=== PATIENT | female | born 1955 | race Two or more races ===

== ENCOUNTER → 2017-12-08 | Outpatient (REF) | payer OTHER ==
[2017-12-08 16:21] LABS: BASO % 0.5 % (0.0-1.0); EOS # 0.1 10^3/uL (0.0-0.50); EOS % 1.4 % (0.0-3.0); HEMATOCRIT 37.3 % (36.0-47.0); HEMOGLOBIN 12.3 g/dl (12.0-16.0); IMMATURE GRANULOCYTE % 0.2 % (0-0); LYMPH % 45.4 % (24.0-44.0); MEAN CORPUSCULAR HEMOGLOBIN 27.8 pg (27.0-33.0); MEAN CORPUSCULAR VOLUME 84.4 fl (80.0-96.0); MONO # 0.6 10^3/uL (0.0-0.8); MONO % 12.8 % (0.0-5.0); NEUTROPHILS # 1.7 10^3/uL (1.8-7.7); NEUTROPHILS % 39.7 % (36.0-66.0); PLATELET COUNT, AUTOMATED 236 10^3/uL (150-450); RED BLOOD COUNT 4.42 10^6/uL (4.00-5.40); RED CELL DISTRIBUTION WIDTH 13.4 % (11.5-14.5); WHITE BLOOD COUNT 4.4 10^3/uL (4.0-10.0)
[2017-12-08 16:38] LABS: ALBUMIN 3.6 GM/DL (3.2-5.2); ALBUMIN/GLOBULIN RATIO 0.88 (1.00-1.93); ALKALINE PHOSPHATASE 84 U/L (45-117); ALT/SGPT 19 U/L (12-78); ANION GAP 6 MEQ/L (8-16); AST/SGOT 19 U/L (7-37); BILIRUBIN,TOTAL 0.3 MG/DL (0.2-1.0); BLOOD UREA NITROGEN 15 MG/DL (7-18); CARBON DIOXIDE LEVEL 32 MEQ/L (21-32); CHLORIDE LEVEL 102 MEQ/L (98-107); CHOLESTEROL LEVEL 219 MG/DL (<200); CREATININE FOR GFR 0.83 MG/DL (0.55-1.02); GLOMERULAR FILTRATION RATE > 60.0 (>45); GLUCOSE, FASTING 129 MG/DL (80-110); HDL CHOLESTEROL 50 MG/DL (>40); LDL CHOLESTEROL 148.6 MG/DL (<100); NON-HDL-C 169 MG/DL; POTASSIUM SERUM 4.2 MEQ/L (3.5-5.1); SODIUM LEVEL 140 MEQ/L (136-145); TOTAL PROTEIN 7.7 GM/DL (6.4-8.2); TRIGLYCERIDES LEVEL 102 MG/DL (<150)
[2017-12-08 17:02] LABS: ESTIMATED AVERAGE GLUCOSE 171 MG/DL (60-110); HEMOGLOBIN A1c 7.6 %
== END ==
LOC: M LAB REF 15:36
DX: Z86.2 Personal history of diseases of the blood and blood-forming organs and certain disorders involving the immune mechanism (principal)

== ENCOUNTER → 2018-01-15 | Outpatient (CLI) | payer OTHER | LOC: M RAD 11:23 | DX: Z12.39 Encounter for other screening for malignant neoplasm of breast (principal); Z78.0 Asymptomatic menopausal state | CPT/HCPCS: 77067 ==

== ENCOUNTER → 2018-01-22 | Outpatient (CLI) | payer MEDICAID, SELFPAY, OTHER | LOC: M CARPUL 09:24 | DX: I05.0 Rheumatic mitral stenosis (principal) | CPT/HCPCS: 93306 ==

== ENCOUNTER → 2018-03-19 | Outpatient (REF) | payer OTHER, MEDICAID ==
[2018-03-19 13:24] LABS: MALB URINE SIEMENS 8.9 MG/L; MAU/CREAT RATIO 5.2 MCG/MG (0.0-30.0)
[2018-03-19 13:34] LABS: ANION GAP 5 MEQ/L (8-16); BLOOD UREA NITROGEN 14 MG/DL (7-18); CALCIUM LEVEL 9.5 MG/DL (8.8-10.2); CARBON DIOXIDE LEVEL 32 MEQ/L (21-32); CHLORIDE LEVEL 103 MEQ/L (98-107); CREATININE FOR GFR 0.85 MG/DL (0.55-1.30); GLOMERULAR FILTRATION RATE > 60.0 (>45); GLUCOSE, FASTING 124 MG/DL (70-100); POTASSIUM SERUM 4.4 MEQ/L (3.5-5.1); SODIUM LEVEL 140 MEQ/L (136-145)
[2018-03-19 13:36] LABS: BASO % 0.6 % (0.0-1.0); EOS # 0.1 10^3/uL (0.0-0.50); EOS % 1.1 % (0.0-3.0); HEMATOCRIT 36.5 % (36.0-47.0); HEMOGLOBIN 12.1 g/dl (12.0-15.5); IMMATURE GRANULOCYTE % 0.2 % (0-3.0); LYMPH # 1.8 10^3/uL (1.5-4.5); LYMPH % 34.3 % (24.0-44.0); MEAN CORPUSCULAR HEMOGLOBIN 28.1 pg (27.0-33.0); MEAN CORPUSCULAR HGB CONC 33.2 g/dl (32.0-36.5); MEAN CORPUSCULAR VOLUME 84.9 fl (80.0-96.0); MONO # 0.7 10^3/uL (0.0-0.8); MONO % 13.2 % (0.0-5.0); NEUTROPHILS # 2.7 10^3/uL (1.8-7.7); NEUTROPHILS % 50.6 % (36.0-66.0); PLATELET COUNT, AUTOMATED 271 10^3/uL (150-450); RED CELL DISTRIBUTION WIDTH 13.4 % (11.5-14.5); WHITE BLOOD COUNT 5.4 10^3/uL (4.0-10.0)
[2018-03-24 14:18] LABS: HPV HYBRID CAPTURE II Negative (Negative)
== END ==
LOC: M LAB REF 12:19
DX: Z12.4 Encounter for screening for malignant neoplasm of cervix (principal)
CPT/HCPCS: 82043

== ENCOUNTER → 2018-05-21 | Outpatient (REF) | payer OTHER ==
[2018-05-21 17:10] LABS: ALBUMIN 3.2 GM/DL (3.2-5.2); ALKALINE PHOSPHATASE 96 U/L (45-117); ALT/SGPT 28 U/L (12-78); ANION GAP 8 MEQ/L (8-16); AST/SGOT 20 U/L (7-37); BILIRUBIN,TOTAL 0.2 MG/DL (0.2-1.0); BLOOD UREA NITROGEN 18 MG/DL (7-18); CALCIUM LEVEL 8.7 MG/DL (8.8-10.2); CARBON DIOXIDE LEVEL 31 MEQ/L (21-32); CHLORIDE LEVEL 103 MEQ/L (98-107); CREATININE FOR GFR 0.88 MG/DL (0.55-1.30); GLOMERULAR FILTRATION RATE > 60.0 (>45); GLUCOSE, FASTING 134 MG/DL (70-100); POTASSIUM SERUM 4.7 MEQ/L (3.5-5.1); SODIUM LEVEL 142 MEQ/L (136-145); TOTAL PROTEIN 7.8 GM/DL (6.4-8.2)
[2018-05-21 18:24] LABS: BASO % 0.8 % (0.0-1.0); EOS # 0.1 10^3/uL (0.0-0.50); EOS % 1.7 % (0.0-3.0); HEMATOCRIT 36.7 % (36.0-47.0); IMMATURE GRANULOCYTE % 0.2 % (0-3.0); LYMPH # 1.5 10^3/uL (1.5-4.5); MEAN CORPUSCULAR HEMOGLOBIN 27.8 pg (27.0-33.0); MEAN CORPUSCULAR HGB CONC 32.7 g/dl (32.0-36.5); MEAN CORPUSCULAR VOLUME 85.2 fl (80.0-96.0); MONO # 0.5 10^3/uL (0.0-0.8); MONO % 9.9 % (0.0-5.0); NEUTROPHILS # 3.1 10^3/uL (1.8-7.7); NEUTROPHILS % 58.4 % (36.0-66.0); PLATELET COUNT, AUTOMATED 259 10^3/uL (150-450); RED BLOOD COUNT 4.31 10^6/uL (4.00-5.40); RED CELL DISTRIBUTION WIDTH 13.2 % (11.5-14.5); WHITE BLOOD COUNT 5.3 10^3/uL (4.0-10.0)
[2018-05-21 18:30] LABS: URINE TOTAL PROTEIN 6.9 MG/DL (0-12)
[2018-05-21 18:35] LABS: APPEARANCE, URINE CLEAR (CLEAR); BACTERIA, URINE AUTO 3+ (NEGATIVE); BILIRUBIN, URINE AUTO NEGATIVE (NEGATIVE); BLOOD, URINE BLOOD NEGATIVE (NEGATIVE); COLOR, URINE YELLOW (YELLOW); GLUCOSE, URINE (UA) AUTO NEGATIVE (NEGATIVE); KETONE, URINE AUTO NEGATIVE (NEGATIVE); LEUKOCYTE ESTERASE, URINE AUTO NEGATIVE (NEGATIVE); MUCUS, URINE SMALL (NEGATIVE); NITRITE, URINE AUTO NEGATIVE (NEGATIVE); PROTEIN, URINE AUTO NEGATIVE (NEGATIVE); RBC, URINE AUTO 1 /HPF (0-3); SPECIFIC GRAVITY URINE AUTO 1.017 (1.002-1.035); SQUAMOUS EPITHELIAL CELL UR AU 0 /HPF (0-6); UROBILINOGEN, URINE AUTO 0.2 mg/dL (0.0-2.0); WBC, URINE AUTO 10 /HPF (0-3)
[2018-05-24 11:23] LABS: ALBUMIN 3.74 GM/DL (3.29-5.55); ALBUMIN % 47.9 % (55.8-66.1); ALPHA-1-GLOBULIN % 4.3 % (2.9-4.9); ALPHA-1-GLOBULINS 0.34 GM/DL (0.17-0.41); ALPHA-2-GLOBULINS % 10.3 % (7.1-11.8); BETA-1-GLOBULINS 0.51 GM/DL (0.28-0.60); BETA-1-GLOBULINS % 6.5 % (4.7-7.2); BETA-2-GLOBULINS 0.57 GM/DL (0.19-0.55); BETA-2-GLOBULINS % 7.3 % (3.2-6.5); GAMMA GLOBULIN % 23.7 % (11.1-18.8); GAMMA GLOBULINS 1.85 GM/DL (0.65-1.58)
[2018-05-27 12:59] LABS: UPEP INTERPRETATION NO M-SPIKE NOTED; URINE VOLUME RANDOM ML
== END ==
LOC: M LAB REF 16:36
DX: R63.4 Abnormal weight loss (principal)
CPT/HCPCS: 84165

== ENCOUNTER → 2018-05-21 | Outpatient (CLI) | payer OTHER | LOC: M LAB 12:11 | DX: M54.5 Low back pain (principal); R93.421 Abnormal radiologic findings on diagnostic imaging of right kidney | CPT/HCPCS: 72080 ==

== ENCOUNTER → 2018-08-13 | Outpatient (REF) | payer OTHER ==
[2018-08-13 13:37] LABS: BASO % 0.6 % (0.0-1.0); EOS # 0.1 10^3/uL (0.0-0.50); EOS % 2.1 % (0.0-3.0); HEMATOCRIT 35.2 % (36.0-47.0); HEMOGLOBIN 11.6 g/dl (12.0-15.5); IMMATURE GRANULOCYTE % 0.2 % (0-3.0); LYMPH # 1.6 10^3/uL (1.5-4.5); LYMPH % 30.2 % (24.0-44.0); MEAN CORPUSCULAR HEMOGLOBIN 27.4 pg (27.0-33.0); MONO # 0.8 10^3/uL (0.0-0.8); MONO % 14.1 % (0.0-5.0); NEUTROPHILS # 2.8 10^3/uL (1.8-7.7); NEUTROPHILS % 52.8 % (36.0-66.0); PLATELET COUNT, AUTOMATED 247 10^3/uL (150-450); RED BLOOD COUNT 4.24 10^6/uL (4.00-5.40); WHITE BLOOD COUNT 5.3 10^3/uL (4.0-10.0)
[2018-08-13 14:03] LABS: TOTAL PROTEIN 8.4 GM/DL (6.4-8.2)
[2018-08-16 15:26] LABS: ALBUMIN 3.37 GM/DL (3.29-5.55); ALBUMIN % 44.4 % (55.8-66.1); ALPHA-1-GLOBULINS 0.34 GM/DL (0.17-0.41); ALPHA-2-GLOBULINS 0.87 GM/DL (0.42-0.99); ALPHA-2-GLOBULINS % 10.3 % (7.1-11.8); BETA-1-GLOBULINS 0.53 GM/DL (0.28-0.60); BETA-1-GLOBULINS % 6.3 % (4.7-7.2); BETA-2-GLOBULINS 0.62 GM/DL (0.19-0.55); BETA-2-GLOBULINS % 7.4 % (3.2-6.5); GAMMA GLOBULIN % 27.6 % (11.1-18.8); GAMMA GLOBULINS 2.32 GM/DL (0.65-1.58)
== END ==
LOC: M LAB REF 13:22
DX: D89.0 Polyclonal hypergammaglobulinemia (principal)

== ENCOUNTER → 2018-10-02 | Outpatient (REF) | payer OTHER ==
[2018-10-02 09:19] LABS: URINE VOLUME 2900 ML
[2018-10-02 09:53] LABS: TOTAL PROTEIN,RANDOM URINE < 5.0 MG/DL (0.0-12.0); URINE TOTAL PROTEIN < 5.0 MG/DL (0-12)
[2018-10-07 14:34] LABS: UPEP INTERPRETATION NO M-SPIKE NOTED
== END ==
LOC: M LAB REF 09:15
DX: N39.9 Disorder of urinary system, unspecified (principal)

== ENCOUNTER → 2018-10-06 | Outpatient (CLI) | payer OTHER | LOC: M RAD 13:01 | DX: D47.2 Monoclonal gammopathy (principal) | CPT/HCPCS: 77075 ==

== ENCOUNTER → 2018-10-29 | Outpatient (CLI) | payer OTHER | LOC: M RAD 15:27 | DX: R93.0 Abnormal findings on diagnostic imaging of skull and head, not elsewhere classified (principal) | CPT/HCPCS: 70450 ==

== ENCOUNTER 2019-02-16 11:56 | Day surgery (SDC) | payer OTHER ==
[~2019-02-16] VITALS: Ht 157.5 cm; Wt 145.0 kg
[~2019-02-16 11:56] MED LIST: HYDR25TAB PO; LOSA25TA14 PO; METF-808 PO; METF500T13 PO; METO1TAB32 PO; OMEP40CA2 PO; PANT40TA3 PO; PLAV1TAB2 PO; ROSU10TA5 PO
[2019-02-16 12:56] LABS: BASO % 0.3 % (0.0-1.0); EOS % 0.4 % (0.0-3.0); HEMATOCRIT 35.7 % (36.0-47.0); HEMOGLOBIN 11.8 g/dl (12.0-15.5); LYMPH # 1.7 10^3/uL (1.5-4.5); LYMPH % 16.3 % (24.0-44.0); MEAN CORPUSCULAR HGB CONC 33.1 g/dl (32.0-36.5); MEAN CORPUSCULAR VOLUME 84.6 fl (80.0-96.0); MONO # 0.7 10^3/uL (0.0-0.8); MONO % 6.8 % (0.0-5.0); NEUTROPHILS # 7.7 10^3/uL (1.8-7.7); NEUTROPHILS % 75.9 % (36.0-66.0); PLATELET COUNT, AUTOMATED 263 10^3/uL (150-450); RED BLOOD COUNT 4.22 10^6/uL (4.00-5.40); WHITE BLOOD COUNT 10.2 10^3/uL (4.0-10.0)
[2019-02-16] MEDS ORDERED: NS 1,000 ML IV ONE (13:00)
[2019-02-16] MEDS ORDERED: ONDANSETRON 4MG/2ML VIAL (J2405) IV ONE ×2 (13:00→15:00)
[2019-02-16 13:19] LABS: ALBUMIN 3.6 GM/DL (3.2-5.2); BILIRUBIN,DIRECT 0.1 MG/DL (0.0-0.2); BILIRUBIN,TOTAL 0.4 MG/DL (0.2-1.0); CALCIUM LEVEL 9.2 MG/DL (8.8-10.2); CREATININE FOR GFR 1.03 MG/DL (0.55-1.30); GLOMERULAR FILTRATION RATE 57.6 (>45); POTASSIUM SERUM 3.8 MEQ/L (3.5-5.1); TOTAL PROTEIN 8.2 GM/DL (6.4-8.2)
[2019-02-16] MEDS ORDERED: MORPHINE 2 MG/ML 1ML SYRINGE (J2270) IV ONE ×2 (14:00→15:45)
--- NOTE | 2019-02-16 14:58 | REP ---
CT ABDOMEN AND PELVIS WITHOUT IV OR ORAL CONTRAST: HISTORY: Right lower quadrant and right flank pain. CT FINDINGS: Preliminary digital store leader radiograph shows an unremarkable bowel gas pattern. The lung bases are clear. The liver and the spleen are normal in size homogeneous in texture. No adrenal lesion is seen. Pancreas is unremarkable. No abnormalities noted in the gallbladder. There is moderate right sided hydronephrosis and hydroureter. Moderately dilated right ureter is traced into the pelvis where there is a 6 mm obstructing distal ureteral calculus just above the ureterovesical junction on the right side. There are scattered areas of vascular calcification. No intrarenal calculi are seen on either side. No left-sided urinary tract calculus is observed. The uterus is retroverted and tipped to the left but unremarkable. No adnexal abnormality is seen. Normal appendix is noted. No large or small bowel abnormality is seen. IMPRESSION: Moderate right-sided hydronephrosis and hydroureter due to a 6 mm obstructing distal ureteral calculus located 2-3 cm above the right ureterovesical junction. Electronically Signed by Raphael Zapien MD 02/16/2019 05:20 P
[2019-02-16] MEDS ORDERED: PARO20TA3 PO (16:17)
[2019-02-16] MEDS ORDERED: PROPOFOL 200 MG/20 ML VIAL As Ordered ONE ×2 (16:45→16:50)
[2019-02-16] MEDS ORDERED: ROCURONIUM BROMIDE 50 MG/5 ML VIAL As Ordered ONE (16:46)
[2019-02-16] MEDS ORDERED: LIDOCAINE 2% INJ 100 MG/5 ML SDV (FOR ANES.) As Ordered ONE (16:46)
[2019-02-16] MEDS ORDERED: ONDANSETRON 4MG/2ML VIAL (J2405) As Ordered ONE (16:50)
[2019-02-16] MEDS ORDERED: METOCLOPRAMIDE INJ 10MG/2ML VIAL (J2765) As Ordered ONE (16:50)
[2019-02-16] MEDS ORDERED: fentaNYL 100 MCG/2 ML INJECTION (J3010) As Ordered ONE (16:51)
[2019-02-16] MEDS ORDERED: MIDAZOLAM INJ 2 MG/2 ML VIAL (J2250) As Ordered ONE (16:51)
[2019-02-16] MEDS ORDERED: CONRAY-60 60% 50ML VIAL (Q9961) As Ordered ONE (17:24)
--- NOTE | 2019-02-16 18:47 | SMCUROLCON ---
Urology Consultation General Date of Consultation 02/16/19 Reason For Consultation This patient is seen for R Obstructing Stone. History of Present Illness This is a 63 y/o F w/ a PMH significant for CAD (on plavix) and HTN, who presented to the ER this morning acute onset right flank pain. A CT A/P was do ne in the ER that was notable for a 6mm distal right ureteral stone w/ moderate right hydroureteronephrosis above the level of the stone. The patient denies dysuria or fevers. Despite multiple doses of morphine in the ER she continues to have 8/10 pain. Her UA only had 1 WBC/hpf. Her WBC 10.2 and the Cr is 1. Past Medical History Medical History see HPI Medications Current Medications Current Medications Home Med (Med Rec Complete!) ASDIRECTED XX ; Start 02/16/19 at 16:30; Stop 02/16/19 at 16:30; Status DC Allergies Allergies: Coded Allergies: Aspirin (Verified Allergy, Severe, swelling, ANGIOEDEMA, 02/16/19) Amoxicillin (Verified Allergy, Intermediate, hives, 02/16/19) Penicillins (Verified Allergy, Intermediate, hives, 02/16/19) Review of Systems Constitutional: Denies: Fever, Chills Skin: Denies: Rash, Lesions, Breakdown, Nail Changes Pulmonary: Denies: Dyspnea, Cough Cardiovascular: Denies Chest Pain, Denies Palpitations Gastrointestinal: Reports: Nausea, Vomiting, Abdominal Pain Musculoskeletal: Reports: Back Pain (right flank pain) Physical Examination General Exam: Alert, Cooperative, No Acute Distress Chest Exam: Clear to auscultation, Normal air movement Heart Exam: Rate Normal, Regular Rhythm Neuro Exam: Normal Speech Psych Exam: Mental status NL, Mood NL Vital Signs/I&O Vital Signs Date Time Temp Pulse Resp B/P (MAP) Pulse Ox O2 Delivery O2 Flow Rate FiO2 02/16/19 17:46 98.1 71 17 138/65 (89) 98 Room Air Laboratory Data 24H Labs Laboratory Tests 2 02/16/19 12:24: Immature Granulocyte % (Auto) 0.3, White Blood Count 10.2H, Red Blood Count 4.2 2, Hemoglobin 11.8L, Hematocrit 35.7L, Mean Corpuscular Volume 84.6, Mean Corpuscular Hemoglobin 28.0, Mean Corpuscular Hemoglobin Concent 33.1, Red Cell Distribution Width 14.5, Platelet Count 263, Neutrophils (%) (Auto) 75.9H, Lymphocytes (%) (Auto) 16.3L, Monocytes (%) (Auto) 6.8H, Eosinophils (%) (Auto) 0.4, Basophils (%) (Auto) 0.3, Neutrophils # (Auto) 7.7, Lymphocytes # (Auto) 1.7, Monocytes # (Auto) 0.7, Eosinophils # (Auto) 0.0, Basophils # (Auto) 0.0, Nucleated Red Blood Cells % (auto) 0.0, Urine Color YELLOW, Urine Appearance CLEAR, Urine pH 7.0, Urine Specific [place] 1.010, Urine Protein NEGATIVE, Urine Glucose (UA) NEGATIVE, Urine Ketones NEGATIVE, Urine Blood 2+H, Urine Nitrite NEGATIVE, Urine Bilirubin NEGATIVE, Urine Urobilinogen 0.2, Urine Leukocyte Esterase NEGATIVE, Urine WBC (Auto) 1, Urine RBC (Auto) 12H, Urine Hyaline Casts (Auto) 0, Urine Bacteria (Auto) 1+H, Urine Squamous Epithelial Cells 0, Urine Mucus (Auto) SMALL, Urine Sperm (Auto) , Anion Gap 9, Glomerular Filtration Rate 57.6, Calcium Level 9.2, Aspartate Amino Transf (AST/SGOT) 17, Alanine Aminotransferase (ALT/SGPT) 16, Alkaline Phosphatase 83, Total Bilirubin 0.4, Direct Bilirubin 0.1, Total Protein 8.2, Albumin 3.6, Albumin/Globulin Ratio 0.78L, Lipase 202 CBC/BMP Laboratory Tests 02/16/19 12:24 Red Blood Count 4.22, Mean Corpuscular Volume 84.6, Mean Corpuscular Hemoglobin 28.0, Mean Corpuscular Hemoglobin Concent 33.1, Red Cell Distribution Width 14.5, Neutrophils (%) (Auto) 75.9 H, Lymphocytes (%) (Auto) 16.3 L, Monocytes (%) (Auto) 6.8 H, Eosinophils (%) (Auto) 0.4, Basophils (%) (Auto) 0.3, Neutrophils # (Auto) 7.7, Lymphocytes # (Auto) 1.7, Monocytes # (Auto) 0.7, Eosinophils # (Auto) 0.0, Basophils # (Auto) 0.0 Assessment This is s 63 y/o F w/ intractable pain from a 6mm obstructing distal right ureteral stone. Since she last took plavix yesterday I did not recommend going in to remove the stone today. I recommended cystoscopy w/ right ureteral stent placement and explained that we will need to bring her back later on for to remove the stone. She noted understanding. After a discussion of the risks and benefits of the procedure, informed consent was signed. Of note, the patient's daughter translated during this encounter. Plan - informed consent signed for cystoscopy, right ureteral stent placement - [facility] [place] [facility] HARRIET Wren MD Feb 16, 2019 18:47
[2019-02-16] MEDS ORDERED: LIDOCAINE 2% 5ML JELLY UROJET As Ordered ONE (18:55)
[2019-02-16] MEDS ORDERED: LevoFLOXacin(LEVAQUIN)500 MG/100 ML BAG (J1956) As Ordered ONE (18:55)
[2019-02-16] MEDS ORDERED: LevoFLOXacin IV 500 MG in APPROPRIATE DILUENT 1 EA IV ONE (19:00)
[2019-02-16] MEDS ORDERED: fentaNYL 100 MCG/2 ML INJECTION (J3010) IV PRN (20:00)
[2019-02-16] MEDS: NORCO, ANEXSIA 5/325MG TABLET (HYDROcodone/ACETAMINOPHEN) PO PRN ×2 (20:00→20:35)
[2019-02-16] MEDS ORDERED: ONDANSETRON 4MG/2ML VIAL (J2405) IV PRN (20:00)
[2019-02-16] MEDS ORDERED: LR 1,000 ML IV SCH (20:00)
[2019-02-16] MEDS ORDERED: PERCOCET 5MG/325MG TAB PO PRN (20:00)
--- NOTE | 2019-02-16 20:43 | REP ---
TWO SPOT VIEWS OF THE ABDOMEN AND PELVIS USING A PORTABLE C-ARM DEVICE IN MY ABSENTIA DURING INTRAVENOUS PYELOGRAPHY ON THE RIGHT WITH DEPLOYMENT OF DOUBLE J PIGTAIL CATHETER: There is a double J pigtail catheter seen on the right, the proximal portion of which is in the right renal pelvis and the left is in the urinary bladder. 6 seconds of fluoroscopy time was provided Dr. Pradeep Bey for the procedure. Electronically Signed by Jatin Gordon DO 02/17/2019 01:57 P
[2019-02-16 20:45] VITALS: BP 118/58
--- NOTE | 2019-02-16 21:27 | ECGEPIP ---
Stationary ECG Study [facility] - ED Test Date: 2019-02-16 Pat Name: BUD DESIR Department: Room: - Gender: F Mapping Technician: YANCI : 1955 Requested By: LOCO Hines PA-C Order Number: [id number] Reading MD: Charity La Measurements Intervals [place] Rate: 66 P: 56 NV: 145 QRS: 77 QRSD: 72 T: 53 QT: 410 QTc: 431 Interpretive Statements SINUS RHYTHM POSSIBLE LEFT ATRIAL ENLARGEMENT SIMILAR 03/11/18 Electronically Signed On 02-16-2019 21:27:38 EDT by Charity La
--- NOTE | 2019-02-17 09:29 | RO ---
DATE OF PROCEDURE: 02/16/2019 PREPROCEDURE DIAGNOSIS: Obstructing right ureteral stone. POSTPROCEDURE DIAGNOSIS: Obstructing right ureteral stone. PROCEDURE: Cystoscopy, right retrograde pyelogram with intraoperative interpretation of images, right ureteral stent placement. SURGEON: Dr. Pradeep Bey PLASTICS SEASONER OPERATOR: None. ANESTHESIA: MAC. OPERATIVE INDICATIONS: This is a 63-year-old female who was found in the emergency room to have an obstructing 6 mm distal right ureteral stone and was having intractable pain from this. It was recommended she be brought to the operating room today for stent placement. I elected not to remove the stone as patient is on Plavix. DESCRIPTION OF PROCEDURE: The patient was brought to the operating room. Prophylactic antibiotics were infused. She was placed in dorsal lithotomy position, prepped and draped in the usual sterile fashion. At this point, a rigid cystoscope was inserted into the urethral meatus and advanced into the bladder. A 5-Lao open ended ureteral catheter was advanced up the right collecting system up into the renal pelvis, even though there was a hydronephrotic drip. A retrograde pyelogram was performed noted for moderate right hydronephrosis. No extravasation. At this point, a wire was advanced up to the right collecting system and then the open ended ureteral catheter was removed. The wire was then utilized to advance a 7-Lao x 22-32 cm JJ ureteral stent up into the right collecting system. The wire was then removed and there were adequate curls to the stent in the right renal pelvis and in the bladder. Bladder was emptied of all fluids and this marked the conclusion of the procedure. The patient was then taken out of dorsal lithotomy position, awakened from anesthesia and transported to the recovery room in stable condition. ESTIMATED BLOOD LOSS: 5 mL. COMPLICATIONS: None. SPECIMENS: None. PLAN: The patient will be discharged home if her pain is under control. Will see her in followup in the clinic in a week or two to get her set up for right ureteroscopy with laser lithotripsy once we have gotten her off her Plavix for about a week. [facility]
== END 2019-02-16 22:03 | disposition home or self-care (01) ==
LOC: M ED 11:56 → M SDC 17:44
PROVIDERS: ATTEND Urology
DX: N20.1 Calculus of ureter (principal); I10 Essential (primary) hypertension; I25.2 Old myocardial infarction; E78.5 Hyperlipidemia, unspecified; E11.9 Type 2 diabetes mellitus without complications; Z86.73 Personal history of transient ischemic attack (TIA), and cerebral infarction without residual deficits; Z79.01 Long term (current) use of anticoagulants; Z79.84 Long term (current) use of oral hypoglycemic drugs; Z88.0 Allergy status to penicillin; Z88.8 Allergy status to other drugs, medicaments and biological substances; Z79.899 Other long term (current) drug therapy
CPT/HCPCS: 52332; 74420; 80048; 80076; 81001; 83690; 85025; 93005; 96361; 96374; 96375; 96376; 99285; C1769; C2617; J1956; J2250; J2270; J2405; J2765; J3010; Q9961

== ENCOUNTER → 2019-03-02 | Outpatient (REF) | payer OTHER ==
[~2019-03-02] MED LIST changes: +PARO20TA3 PO
[2019-03-02 14:02] LABS: APPEARANCE, URINE CLEAR (CLEAR); BACTERIA, URINE AUTO NEGATIVE (NEGATIVE); BILIRUBIN, URINE AUTO NEGATIVE (NEGATIVE); BLOOD, URINE BLOOD NEGATIVE (NEGATIVE); COLOR, URINE YELLOW (YELLOW); GLUCOSE, URINE (UA) AUTO NEGATIVE (NEGATIVE); KETONE, URINE AUTO NEGATIVE (NEGATIVE); LEUKOCYTE ESTERASE, URINE AUTO 1+ (NEGATIVE); MUCUS, URINE SMALL (NEGATIVE); NITRITE, URINE AUTO NEGATIVE (NEGATIVE); PROTEIN, URINE AUTO NEGATIVE (NEGATIVE); RBC, URINE AUTO 1 /HPF (0-3); SPECIFIC GRAVITY URINE AUTO 1.015 (1.002-1.035); SQUAMOUS EPITHELIAL CELL UR AU 1 /HPF (0-6); UROBILINOGEN, URINE AUTO 0.2 mg/dL (0.0-2.0); WBC, URINE AUTO 1 /HPF (0-3)
== END ==
LOC: M SMT 12:58
PROVIDERS: ATTEND Nurse Practitioner Family
DX: R30.0 Dysuria (principal)

== ENCOUNTER → 2019-03-23 | Outpatient (CLI) | payer OTHER ==
[~2019-03-23] MED LIST changes: +ALL10TAB28 PO; +LISI-538 PO; -METF-808 PO; +METF-954 PO; +OXYC1TAB23; +VITA500T PO; +VITAD1000T PO
[2019-03-23 11:12] LABS: APPEARANCE, URINE CLEAR (CLEAR); BACTERIA, URINE AUTO NEGATIVE (NEGATIVE); BILIRUBIN, URINE AUTO NEGATIVE (NEGATIVE); BLOOD, URINE BLOOD 1+ (NEGATIVE); COLOR, URINE YELLOW (YELLOW); GLUCOSE, URINE (UA) AUTO NEGATIVE (NEGATIVE); HEMATOCRIT 37.8 % (36.0-47.0); HEMOGLOBIN 12.4 g/dl (12.0-15.5); KETONE, URINE AUTO NEGATIVE (NEGATIVE); LEUKOCYTE ESTERASE, URINE AUTO 1+ (NEGATIVE); MEAN CORPUSCULAR HEMOGLOBIN 28.2 pg (27.0-33.0); MEAN CORPUSCULAR HGB CONC 32.8 g/dl (32.0-36.5); MEAN CORPUSCULAR VOLUME 86.1 fl (80.0-96.0); NITRITE, URINE AUTO NEGATIVE (NEGATIVE); PLATELET COUNT, AUTOMATED 199 10^3/uL (150-450); PROTEIN, URINE AUTO NEGATIVE (NEGATIVE); RBC, URINE AUTO 13 /HPF (0-3); RED BLOOD COUNT 4.39 10^6/uL (4.00-5.40); SPECIFIC GRAVITY URINE AUTO 1.016 (1.002-1.035); SQUAMOUS EPITHELIAL CELL UR AU 0 /HPF (0-6); UROBILINOGEN, URINE AUTO 0.2 mg/dL (0.0-2.0); WBC, URINE AUTO 9 /HPF (0-3); WHITE BLOOD COUNT 4.2 10^3/uL (4.0-10.0)
[2019-03-23 11:23] LABS: INR 1.08; PARTIAL THROMBOPLASTIN TIME 23.2 SECONDS (25.4-37.6); PROTHROMBIN TIME 14.1 SECONDS (12.1-14.4)
[2019-03-23 11:31] LABS: BLOOD UREA NITROGEN 21 MG/DL (7-18); CALCIUM LEVEL 9.2 MG/DL (8.8-10.2); CARBON DIOXIDE LEVEL 30 MEQ/L (21-32); CHLORIDE LEVEL 102 MEQ/L (98-107); CREATININE FOR GFR 0.96 MG/DL (0.55-1.30); GLOMERULAR FILTRATION RATE > 60.0 (>45); GLUCOSE, FASTING 115 MG/DL (70-100); POTASSIUM SERUM 4.3 MEQ/L (3.5-5.1); SODIUM LEVEL 137 MEQ/L (136-145)
== END ==
LOC: M LAB 10:24
PROVIDERS: ATTEND Nurse Practitioner Family
DX: Z01.818 Encounter for other preprocedural examination (principal); N20.0 Calculus of kidney

== ENCOUNTER → 2019-03-23 | Outpatient (CLI) | payer OTHER ==
--- NOTE | 2019-03-23 12:37 | REP ---
CHEST, TWO VIEWS: There is no evidence of acute infiltrate. No pleural effusion is seen. The heart is normal in size. The mediastinal silhouette is unremarkable. The visualized osseous structures are intact. There is mild calcification of the thoracic aorta. IMPRESSION: No acute pulmonary disease. Electronically Signed by Wilmar Saavedra MD 03/23/2019 04:34 P
--- NOTE | 2019-03-24 00:39 | ECGEPIP ---
Stationary ECG Study [facility] Test Date: 2019-03-23 Pat Name: BUD DESIR Department: Room: - Gender: F Energy Derivatives Trader: : 1955 Requested By: Aime Castro Order Number: [id number] Reading MD: Juan Shabazz Measurements Intervals [place] Rate: 61 P: 56 ND: 144 QRS: 76 QRSD: 78 T: 60 QT: 402 QTc: 408 Interpretive Statements SINUS RHYTHM Similar to tracing done 02-16-19 Electronically Signed On 03-24-2019 0:38:47 EDT by Juan Shabazz
== END ==
LOC: M LAB 09:30 → M EKG 09:30
PROVIDERS: ATTEND Family Medicine Addiction Medicine
DX: Z01.818 Encounter for other preprocedural examination (principal)

== ENCOUNTER 2019-04-01 09:37 | Day surgery (SDC) | payer OTHER ==
[~2019-04-01] VITALS: Ht 154.9 cm; Wt 64.9 kg
[~2019-04-01 09:37] MED LIST changes: +CIPROFLOXACIN 400 MG in APPROPRIATE DILUENT 1 EA IV ONE; +LIDOCAINE 2% INJ 100 MG/5 ML SDV (FOR ANES.) As Ordered ONE; +LR 1,000 ML IV ONE; +MIDAZOLAM INJ 2 MG/2 ML VIAL (J2250) As Ordered ONE; +ONDANSETRON 4MG/2ML VIAL (J2405) As Ordered ONE; +PROPOFOL 200 MG/20 ML VIAL As Ordered ONE; +dexameTHASONE 4 MG/ML 1ML VIAL (J1100) As Ordered ONE; +fentaNYL 100 MCG/2 ML INJECTION (J3010) As Ordered ONE
[2019-04-01] MEDS ORDERED: CONRAY-60 60% 50ML VIAL (Q9961) As Ordered ONE (12:41)
[2019-04-01] MEDS ORDERED: PERCOCET 5MG/325MG TAB PO PRN (14:15)
[2019-04-01] MEDS ORDERED: LR 1,000 ML IV SCH (14:30)
[2019-04-01] MEDS ORDERED: NORCO, ANEXSIA 5/325MG TABLET (HYDROcodone/ACETAMINOPHEN) PO PRN (14:30)
[2019-04-01] MEDS ORDERED: ONDANSETRON 4MG/2ML VIAL (J2405) IV PRN (14:30)
[2019-04-01] MEDS ORDERED: fentaNYL 100 MCG/2 ML INJECTION (J3010) IV PRN (14:30)
[2019-04-01 16:45] VITALS: BP 161/88
--- NOTE | 2019-04-01 21:27 | RO ---
DATE OF PROCEDURE: 04/01/2019 PREPROCEDURE DIAGNOSIS: Right ureteral stone. POSTPROCEDURE DIAGNOSIS: Right ureteral stone. PROCEDURE: Cystoscopy, right ureteroscopy withk basket extraction of stone, removal of right ureteral stent. SURGEON: Pradeep Bey MD OVENS SUPERVISOR: None. ANESTHESIA: General. OPERATIVE INDICATIONS: This is a 64-year-old female who was brought to the operating room a few weeks ago for a right ureteral stent placement for an obstructing 6 mm distal right ureteral stone. She was on Plavix at that time. She has now been off the Plavix for a week and she is brought for removal of her stone. DESCRIPTION OF PROCEDURE: The patient was brought to the operating room and general anesthesia was induced. Prophylactic antibiotics were infused. She was then placed in the dorsal lithotomy position, prepped and draped in the usual sterile fashion. A rigid cystoscope was then inserted into the urethral meatus and advanced to the bladder. The previously placed stent was seen and grasped. It was withdrawn until the distal end was seen protruding from the urethral meatus. I then advanced the wire up the stent and then removed the stent completely. The wire secured through drape. I then went up the right ureter with a short semi rigid ureteroscope and within the distal ureter the 6 mm stone was seen. The stone was then grasped with the basket and withdrawn from the right ureter. I then went back in the ureter and no additional stones were seen. The ureter appeared to be adequately dilated and there was only minor trauma from removing the stone. I therefore, decided not to leave a new stent. At this point, the bladder was emptied of all fluid and this marked the conclusion of the procedure. The previously placed wire was also removed. The patient was then taken out of the dorsal lithotomy position, awakened from anesthesia and transported to the recovery room in stable condition. ESTIMATED BLOOD LOSS: 5 mL. COMPLICATIONS: None. SPECIMENS: Right ureteral stone. PLAN: The patient will followup in the clinic in a few weeks for postoperative visit. SIRI
== END 2019-04-01 17:18 | disposition home or self-care (01) ==
LOC: M SDC 09:37
PROVIDERS: ATTEND Urology
DX: N20.0 Calculus of kidney (principal); I10 Essential (primary) hypertension; E11.9 Type 2 diabetes mellitus without complications; I25.10 Atherosclerotic heart disease of native coronary artery without angina pectoris; R30.0 Dysuria; Z79.84 Long term (current) use of oral hypoglycemic drugs; Z79.899 Other long term (current) drug therapy
CPT/HCPCS: 52352; 82360; 88300; C1769; J0744; J1100; J2250; J2405; J3010; Q9961

== ENCOUNTER → 2019-06-16 | Outpatient (REF) | payer OTHER ==
[~2019-06-16] MED LIST changes: -CIPROFLOXACIN 400 MG in APPROPRIATE DILUENT 1 EA IV ONE; -LIDOCAINE 2% INJ 100 MG/5 ML SDV (FOR ANES.) As Ordered ONE; -LR 1,000 ML IV ONE; -MIDAZOLAM INJ 2 MG/2 ML VIAL (J2250) As Ordered ONE; -ONDANSETRON 4MG/2ML VIAL (J2405) As Ordered ONE; -PROPOFOL 200 MG/20 ML VIAL As Ordered ONE; -ROSU10TA5 PO; +ROSU10TA6 PO; -dexameTHASONE 4 MG/ML 1ML VIAL (J1100) As Ordered ONE; -fentaNYL 100 MCG/2 ML INJECTION (J3010) As Ordered ONE
[2019-06-16 14:19] LABS: ALBUMIN 3.7 GM/DL (3.2-5.2); ALT/SGPT 19 U/L (12-78); BILIRUBIN,TOTAL 0.3 MG/DL (0.2-1.0); BLOOD UREA NITROGEN 19 MG/DL (7-18); CALCIUM LEVEL 9.4 MG/DL (8.8-10.2); CARBON DIOXIDE LEVEL 33 MEQ/L (21-32); CHLORIDE LEVEL 101 MEQ/L (98-107); CHOLESTEROL LEVEL 194 MG/DL (<200); CREATININE FOR GFR 0.99 MG/DL (0.55-1.30); GLOMERULAR FILTRATION RATE > 60.0 (>45); GLUCOSE, FASTING 112 MG/DL (70-100); HDL CHOLESTEROL 61 MG/DL (>40); LDL CHOLESTEROL 109 MG/DL (<100); NON-HDL-C 133 MG/DL; POTASSIUM SERUM 3.9 MEQ/L (3.5-5.1); SODIUM LEVEL 140 MEQ/L (136-145); TOTAL PROTEIN 7.9 GM/DL (6.4-8.2); TRIGLYCERIDES LEVEL 120 MG/DL (<150)
== END ==
LOC: M LAB REF 13:06
PROVIDERS: ATTEND Family Medicine Addiction Medicine
DX: N20.0 Calculus of kidney (principal)

== ENCOUNTER → 2019-08-19 | Outpatient (REF) | payer OTHER ==
[~2019-08-19] MED LIST changes: -ALL10TAB28 PO; +ALL10TAB29 PO; +CHOL100029 PO; -VITAD1000T PO
[2019-08-19 13:49] LABS: CREATININE FOR GFR 1.01 MG/DL (0.55-1.30); GLOMERULAR FILTRATION RATE 58.7 (>45)
== END ==
LOC: M LABNEURO 10:30
PROVIDERS: ATTEND Psychiatry & Neurology Neurology
DX: I10 Essential (primary) hypertension (principal)

== ENCOUNTER → 2019-08-24 | Outpatient (REF) | payer OTHER ==
[2019-08-24 17:48] LABS: ALBUMIN 3.5 GM/DL (3.2-5.2); ALT/SGPT 15 U/L (12-78); BILIRUBIN,TOTAL 0.3 MG/DL (0.2-1.0); BLOOD UREA NITROGEN 13 MG/DL (7-18); CALCIUM LEVEL 9.6 MG/DL (8.8-10.2); CARBON DIOXIDE LEVEL 32 MEQ/L (21-32); CHLORIDE LEVEL 103 MEQ/L (98-107); CHOLESTEROL LEVEL 211 MG/DL (<200); CHOLESTEROL RISK RATIO 3.403 (<5); CREATININE FOR GFR 0.99 MG/DL (0.55-1.30); GLOMERULAR FILTRATION RATE > 60.0 (>45); GLUCOSE, FASTING 128 MG/DL (70-100); HDL CHOLESTEROL 62 MG/DL (>40); LDL CHOLESTEROL 135 MG/DL (<100); NON-HDL-C 149 MG/DL; POTASSIUM SERUM 4.9 MEQ/L (3.5-5.1); SODIUM LEVEL 140 MEQ/L (136-145); TOTAL PROTEIN 7.2 GM/DL (6.4-8.2); TRIGLYCERIDES LEVEL 71 MG/DL (<150)
[2019-08-24 18:00] LABS: HEMOGLOBIN A1c 6.6 %
== END ==
LOC: M LAB REF 17:02
PROVIDERS: ATTEND Nurse Practitioner Family
DX: E78.5 Hyperlipidemia, unspecified (principal); E11.9 Type 2 diabetes mellitus without complications